=== PATIENT | female | born 1965 | race Caucasian/White ===

== ENCOUNTER → 2016-05-27 | Day surgery (SDC) | payer MEDICARE, OTHER ==
[~2016-05-27] MED LIST: ALPRAZolam 0.25 MG TAB ONE
--- NOTE | 2016-05-27 12:34 | USB ---
EXAMINATION TYPE: US discontinued breast bx LT DATE OF EXAM: 05/27/2016 12:30 PM COMPARISON: Outside ultrasound from [facility] dated 04/25/2016 HISTORY: Abnormal outside ultrasound dated 04/25/2016 The procedure is discussed with the patient, the risks, complications, benefits and alternatives, wer e discussed and any questions were answered. Informed consent was obtained. Preliminary imaging could not replicate the finding noted at the outside hospital. The small cystic a reas previously noted are stable. There is no mass seen for percutaneous biopsy. IMPRESSION: The finding noted on the outside hospital was not replicated on today's scan. Therefore, biopsy could not 4. Recommend 6 month follow-up.
== END ==
LOC: LABWHC1 11:13
PROVIDERS: ATTEND Surgery
DX: R92.8 Other abnormal and inconclusive findings on diagnostic imaging of breast (principal); Z53.8 Procedure and treatment not carried out for other reasons

== ENCOUNTER 2020-12-06 23:11 | Emergency (ER) | payer MEDICARE, OTHER ==
[2020-12-06 23:34] VITALS: RESP 18; TEMP 98.9
--- NOTE | 2020-12-06 23:51 | ED ---
General Adult HPI - General Chief complaint: Chest Pain Stated complaint: Chest Pain Time Seen by Provider: 12/06/20 23:33 Source: patient, EMS Mode of arrival: EMS Limitations: no limitations - History of Present Illness Initial comments: 55 year-old female patient presents to the emergency department as a transfer from [facility] for chest pain rule out ACS. Patient has past history of CAD with STEMI and one coronary stent. States she was lifting 50lb bag of dog food earlier then had onset of pain between her shoulder blades and generalized chest tightness. Patient states she did have difficulty breathing with this. Denies nausea or vomiting. Denies any dizziness or weakness. Denies cough/congestion, fever, or chills. Denies any numbness, tingling, or weakness to the extremities. Patient did have labs and chest x-ray at the previous hospital, initial troponin was negative. Patient was transferred here for further evaluation by cardiology. - Related Data Home Medications Medication Instructions Recorded Confirmed hydroCHLOROthiazide [Hydrodiuril] 25 mg PO HS 08/04/15 10/09/15 Nicotine 21Mg/24Hr Patch [Habitrol] 1 patch TRANSDERM DAILY 08/12/15 10/09/15 Acetaminophen [Tylenol] 325 mg PO Q4H PRN 10/04/15 10/09/15 lisinopriL [Zestril] 5 mg PO HS 10/04/15 10/09/15 Metoprolol Tartrate [Lopressor] 12.5 mg PO HS 10/09/15 10/09/15 Previous Rx's Medication Instructions Recorded Aspirin 81 mg PO DAILY #30 chew 08/06/15 Atorvastatin [Lipitor] 80 mg PO HS #30 tab 08/06/15 Clopidogrel [Plavix] 75 mg PO DAILY #30 tab 08/06/15 Nitroglycerin Sl Tabs [Nitrostat] 0.4 mg SUBLINGUAL Q5M PRN #30 tab 08/06/15 Acetaminophen-Codeine 300-30mg 2 each PO Q6HR PRN #30 tab 10/10/15 [Tylenol w/codeine #3] Sennosides-Docusate Sodium 2 each PO BID PRN #60 tab 10/10/15 [Senokot-S] Allergies Allergy/AdvReac Type Severity Reaction Status Date / Time Penicillins Allergy Anaphylaxis Verified 12/06/20 23:34 propoxyphene HCl Allergy Dyspnea Verified 12/06/20 23:34 [From Darvon] Sulfa (Sulfonamide Allergy Rash/Hives Verified 12/06/20 23:34 Antibiotics) aspirin AdvReac BLEEDING Verified 12/06/20 23:34 ULCER Review of Systems ROS Statement: Those systems with pertinent positive or pertinent negative responses have been documented in the HPI. ROS Other: All systems not noted in ROS Statement are negative. Past Medical History Past Medical History: Coronary Artery Disease (CAD), Hypertension, Myocardial Infarction ([place]) Additional Past Medical History / Comment(s): DJD, BULDGING NECK DISC History of Any Multi-Drug Resistant Organisms: None Reported Past Surgical History: Appendectomy, Heart Catheterization With Stent, Orthopedic Surgery, Tubal Ligation Additional Past Surgical History / Comment(s): RT BREAST LUMPETOMY; stent placement (08/06/15) Past Anesthesia/Blood Transfusion Reactions: No Reported Reaction Date of Last Stent Placement:: 08/06/15 Past Psychological History: Anxiety Past Alcohol Use History: None Reported Past Drug Use History: None Reported - Past Family History Mother Family Medical History: Diabetes Mellitus, Myocardial Infarction ([place]) Additional Family Medical History / Comment(s): cardiac stents Father Family Medical History: Cancer Additional Family Medical History / Comment(s): pancreatic CA Brother(s) Additional Family Medical History / Comment(s): CABG General Exam Limitations: no limitations General appearance: alert, in no apparent distress, other (This is a well- developed, well-nourished adult female patient in no acute distress. Vital signs upon presentation are temperature 98.9F, pulse 71, respirations 18, blood pressure 134/84, pulse ox 95% on room air.) Respiratory exam: Present: normal lung sounds bilaterally. Absent: respiratory distress, wheezes, rales, rhonchi, stridor Cardiovascular Exam: Present: regular rate, normal rhythm, normal heart sounds. Absent: systolic murmur, diastolic murmur, rubs, gallop, clicks GI/Abdominal exam: Present: soft, normal bowel sounds. Absent: distended, tenderness, guarding, rebound, rigid Neurological exam: Present: alert, oriented X3, CN II-XII intact Psychiatric exam: Present: normal affect, normal mood Skin exam: Present: warm, dry, intact, normal color. Absent: rash Course Vital Signs 12/06/20 12/07/20 23:32 00:07 Temperature 98.9 F Pulse Rate 71 78 Respiratory 18 18 Rate Blood Pressure 134/84 131/77 O2 Sat by Pulse 95 95 Oximetry EKG Findings - EKG Comments: EKG Findings:: EKG obtained at 2359 shows normal sinus rhythm with prolonged QT interval. Ventricular rate is 61, CT interval 176, QRS duration 92, QTc 492, QTc 495. No evidence of ST elevation or depression. Medical Decision Making - Medical Decision Making 55-year-old female patient came in as a transfer from [facility] for chest pain rule out ACS. Patient does have past history significant for CAD, with STEMI, and one cardiac stent. Physical examination is unremarkable. I did review reports from [facility] initial troponin was negative. I did discuss the plan with the patient that would include admission to the hospital, serial troponins, and further evaluation by cardiology in the morning. Patient refuses to be admitted stating that she had to get home for her granddaughters cheerleading event tomorrow. I discussed in detail the risks of leaving including permanent disability, completed heart attack, and . The patient verbalizes understanding and absolutely refused to stay. She did sign AGAINST MEDICAL ADVICE form. She is instructed to follow-up with director blood bank and primary care physician as soon as possible. Return parameters were discussed in detail. She verbalizes understanding. Case discussed with my attending Dr. Pineda. Disposition Clinical Impression: Chest pain Disposition: Left Against Medical Advice Condition: Undetermined Instructions (If sedation given, give patient instructions): Chest Pain (ED) Additional Instructions: Follow up with your primary care physician and director blood bank for further evaluation as soon as possible. Return for any new, worsening, or concerning symptoms. Is patient prescribed a controlled substance at d/c from ED?: No Referrals: None,Stated [Primary Care Provider] - 1-2 days Time of Disposition: 23:51
[2020-12-07 00:08] VITALS: BP 131/77; PULSE 78
== END 2020-12-07 00:08 | disposition left against medical advice (07) ==
LOC: EC 23:11
DX: R07.89 Other chest pain (principal); I10 Essential (primary) hypertension; I25.2 Old myocardial infarction; I25.10 Atherosclerotic heart disease of native coronary artery without angina pectoris; Z95.5 Presence of coronary angioplasty implant and graft; Z88.0 Allergy status to penicillin; Z88.2 Allergy status to sulfonamides; Z88.6 Allergy status to analgesic agent; Z88.8 Allergy status to other drugs, medicaments and biological substances; Z79.899 Other long term (current) drug therapy
CPT/HCPCS: 93005; 99285

== ENCOUNTER 2021-06-07 06:54 | Day surgery (SDC) | payer MEDICARE, OTHER ==
[2021-06-05 15:59] VITALS: BMI 30.5
[~2021-06-07 06:54] MED LIST changes: +ACETAMINOPHEN TAB 500 MG TAB PO PRN; -ALPRAZolam 0.25 MG TAB ONE; +DEXAMETHASONE SOD PHOSPHATE 4 MG/ML 1 ML VIAL IV ONE; +HEPARIN SODIUM,PORCINE/PF 5,000 UNIT/0.5 ML SYRINGE SQ PRN; +HYDROmorphone 0.5 MG/0.5 ML SYRINGE IVP PRN; +LACTATED RINGERS 1,000 ML IV SCH; +LIDOCAINE 1% (10MG/ML) FOR IV START INTRADERMA PRN; +MIDAZOLAM 2 MG/2 ML VIAL IV PRN; +ONDANSETRON 4 MG/2 ML VIAL IVP ONE; +Pre Op ABX Message 1 EACH MISC MISCELLANE ONE
[2021-06-07] MEDS ORDERED: ALPRAZolam 0.5 MG TAB ONE (07:14)
[2021-06-07] MEDS ORDERED: ALPRAZolam 0.5 MG TAB PO ONE (07:15)
--- NOTE | 2021-06-07 07:55 | P.GSHP ---
History of Present Illness H&P Date: 06/07/21 Chief Complaint: Abnormal left mammogram This a 48-year-old female who recently had a suspicious mammogram and core biopsy.. Patient resents today for left breast biopsy with needle localization. Past Medical History Past Medical History: Cancer, Chest Pain / Angina, Hypertension, Myocardial Infarction ([place]), Rheumatoid Arthritis ([place]) Additional Past Medical History / Comment(s): DJD, BULDGING NECK DISC, hx migraines, hx cervical cancer, rt breast "pre cancer" Last Myocardial Infarction Date:: 2015 History of Any Multi-Drug Resistant Organisms: None Reported Past Surgical History: Appendectomy, Breast Surgery, Heart Catheterization With Stent, Hysterectomy, Orthopedic Surgery, Tubal Ligation Additional Past Surgical History / Comment(s): RT BREAST LUMPETOMY x 2; one cardiac stent, rt knee surgeries x 3, rt foot surgery x 3 Past Anesthesia/Blood Transfusion Reactions: No Reported Reaction Date of Last Stent Placement:: 08/06/15 Smoking Status: Current every day smoker - Past Family History Mother Family Medical History: Cancer, Myocardial Infarction ([place]) Additional Family Medical History / Comment(s): breast cancer Father Family Medical History: Cancer Additional Family Medical History / Comment(s): pancreatic CA Brother(s) Additional Family Medical History / Comment(s): CABG Medications and Allergies Home Medications Medication Instructions Recorded Confirmed Type hydroCHLOROthiazide [Hydrodiuril] 25 mg PO HS 08/04/15 06/07/21 History Clopidogrel [Plavix] 75 mg PO HS 06/05/21 06/07/21 History Cyclobenzaprine [Flexeril] 10 mg PO HS 06/05/21 06/07/21 History Ranolazine [Ranexa] 500 mg PO HS 06/05/21 06/07/21 History Rosuvastatin [Crestor] 20 mg PO HS 06/05/21 06/07/21 History Allergies Allergy/AdvReac Type Severity Reaction Status Date / Time Penicillins Allergy Anaphylaxis Verified 06/07/21 07:14 propoxyphene HCl Allergy Dyspnea Verified 06/07/21 07:14 [From Darvon] Sulfa (Sulfonamide Allergy Rash/Hives Verified 06/07/21 07:14 Antibiotics) aspirin AdvReac BLEEDING Verified 06/07/21 07:14 ULCER dial Allergy Itching Uncoded 06/07/21 07:14 Surgical - Exam Vital Signs Pulse Resp BP Pulse Ox 72 16 143/80 97 06/07/21 07:29 06/07/21 07:29 06/07/21 07:29 06/07/21 07:29 - General well developed, well nourished, no distress - Eyes PERRL - ENT normal pinna - Neck no masses - Respiratory normal expansion - Cardiovascular Rhythm: regular - Abdomen Abdomen: soft, non tender - Integumentary Breast exam is within normal limits. There is no masses palpated. There is no cervical or axillary lymphadenopathy. Assessment and Plan Assessment: Recent abnormal mammogram and core biopsy. Patient will undergo left breast biopsy with needle localization.
[2021-06-07] MEDS ORDERED: LIDOCAINE 1% INJ 10MG/ML (20 ML MDV) SQ ONE (08:28)
[2021-06-07] MEDS ORDERED: BUPIVACAIN-EPI 0.25%-1:200,000 30 ML VIAL SQ ONE ×2 (08:47→09:35)
[2021-06-07] MEDS ORDERED: LIDOCAINE 1% INJ 10MG/ML (20 ML MDV) ONE (08:55)
[2021-06-07] MEDS ORDERED: fentaNYL (PF) 50 MCG/ML 2 ML AMP ONE (08:55)
[2021-06-07] MEDS ORDERED: PROPOFOL 10 MG/ML 20 ML VIAL IV ONE (08:55)
[2021-06-07] MEDS ORDERED: [UNRECOGNIZED DRUG - OTHER] IV ONE ×2 (09:17)
[2021-06-07] MEDS ORDERED: SODIUM CHLORIDE 0.9% IV ONE ×2 (09:17)
[2021-06-07] MEDS ORDERED: CLINDAMYCIN IV ONE ×2 (09:17)
--- NOTE | 2021-06-07 09:49 | USB ---
EXAM: Needle localization with wire placement. CLINICAL HISTORY: Biopsy-proven cancer in left breast TECHNIQUE: Needle localization with wire placement and surgical excision of area of concern in the le ft breast. COMPARISON: Prior outside mammogram and ultrasound April 25, 2021 FINDINGS: The procedure of needle localization with wire placement and than surgical excision was exp lained to the patient. Benefits, alternatives, and risks were discussed. An informed consent was th en obtained. Ultrasound-guided localization chosen as lesion was sampled and well seen under ultrasound. Preproced ure ultrasound redemonstrates heterogeneous hypoechoic mass at 11:00 position. The overlying skin was prepped and draped in usual sterile fashion. Lidocaine is used as anesthetic into the skin and subcu taneous tissue up to the level of area of concern. A 5 cm needle was used. It was placed via ultras ound guidance. At this point, wire was placed and the needle was withdrawn. The wire was fixed to p atient's skin. Surgeon did not need post procedure mammogram. The patient tolerated the procedure well without any immediate complication. The patient was kept in the radiology department for short stay after the procedure and then taken to surgery for surgical e xcision. Targeted mass with clip and wire are identified in specimen mammogram. The patient was kept in hospital for short stay after the procedure and then discharged home in stable condition. IMPRESSION: Successful, uncomplicated needle localization with wire placement and surgical excision o f known cancer in the left breast, full pathology results to follow.
--- NOTE | 2021-06-07 09:51 | P.OP ---
Date of Procedure: 06/07/21 Preoperative Diagnosis: Abnormal left mammogram Postoperative Diagnosis: Defer to pathology Procedure(s) Performed: Left breast ultrasound-guided needle localization biopsy Anesthesia: GABIA Surgeon: Channing Wilkerson Estimated Blood Loss (ml): 5 Pathology: other (Left breast biopsy) Condition: stable Disposition: PACU Description of Procedure: The patient's placed on the operating table in the supine position she received general J-tube incision. Her left breast was prepped and draped usual sterile fashion. Patient had previously placed needle localization perform an ultrasound. A skin incision was made at the wire site and using left cautery and Harmonic scissors a core of tissue around the wire was removed. The specimen was painted for orientation and then sent to pathology. Hemostasis achieved left cautery. The biopsy cavity was clipped. The skin was then closed with interrupted 3-0 Monocryl suture. Dermabond dressings was applied. There was confirmation that the lesion wasn't within the specimen by women[facility]. Patient was sent to recovery room in stable condition
[2021-06-07 09:55] VITALS: TEMP 97.3
[2021-06-07 11:00] VITALS: RESP 18
[2021-06-07 11:16] VITALS: BP 126/86; PULSE 78
== END 2021-06-07 11:47 | disposition home or self-care (01) ==
LOC: OR 06:54
PROVIDERS: ATTEND Surgery
DX: D24.2 Benign neoplasm of left breast (principal); I10 Essential (primary) hypertension; I25.2 Old myocardial infarction; M06.9 Rheumatoid arthritis, unspecified; G43.909 Migraine, unspecified, not intractable, without status migrainosus; Z85.41 Personal history of malignant neoplasm of cervix uteri; Z85.3 Personal history of malignant neoplasm of breast; M19.90 Unspecified osteoarthritis, unspecified site; Z90.49 Acquired absence of other specified parts of digestive tract; Z95.5 Presence of coronary angioplasty implant and graft; Z90.710 Acquired absence of both cervix and uterus; Z98.51 Tubal ligation status; Z98.890 Other specified postprocedural states; F17.200 Nicotine dependence, unspecified, uncomplicated; Z82.49 Family history of ischemic heart disease and other diseases of the circulatory system; Z80.3 Family history of malignant neoplasm of breast; Z80.0 Family history of malignant neoplasm of digestive organs; Z79.899 Other long term (current) drug therapy; Z88.6 Allergy status to analgesic agent; Z88.5 Allergy status to narcotic agent; Z88.0 Allergy status to penicillin; Z88.2 Allergy status to sulfonamides; Z91.09 Other allergy status, other than to drugs and biological substances
CPT/HCPCS: 19301; 76098; 19285; J1100; J2405; J2001; J3010; J2704; J1644; 88307

== ENCOUNTER → 2022-06-16 | Outpatient (CLI) | payer MEDICARE, OTHER ==
--- NOTE | 2022-06-16 10:10 | US ---
EXAMINATION TYPE: US venous doppler duplex LE RT DATE OF EXAM: 06/16/2022 10:00 AM COMPARISON: NONE CLINICAL INDICATION: Female, 57 years old with history of [id number] RIGHT LEG PAIN; On blood thinners. Right outer thigh/hip pain. No redness or swelling. SIDE PERFORMED: Right TECHNIQUE: The lower extremity deep venous system is examined utilizing real time linear array sonog olman with graded compression, doppler sonography and color-flow sonography. VESSELS IMAGED: Common Femoral Vein Deep Femoral Vein Greater Saphenous Vein * Femoral Vein Popliteal Vein Small Saphenous Vein * Proximal Calf Veins (* superficial vessels) Right Leg: Negative for DVT IMPRESSION: Grayscale, color doppler, spectral doppler imaging performed of the deep veins of the lo wer extremities. There is normal flow, compressibility, vascular waveforms.
== END | disposition home or self-care (01) ==
LOC: RADUSWWP 09:20
PROVIDERS: ATTEND Pediatrics
DX: M79.604 Pain in right leg (principal)